=== PATIENT | female | born 1950 ===

== ENCOUNTER 2021-01-07 11:06 | Day surgery (SDC) | payer MEDICARE, BC ==
[~2021-01-07] VITALS: Ht 167.6 cm; Wt 107.3 kg
[2021-01-07 12:06] VITALS: BP 156/72; PULSE 72; TEMP 97.8
[2021-01-07] MEDS ORDERED: GLUCOSAMINE & C1 TAB PO (12:15)
[2021-01-07] MEDS ORDERED: CALCIUM 600/VIT1 CA1 PO (12:15)
[2021-01-07] MEDS ORDERED: CLARITIN 1010 MG/TAB PO (12:15)
[2021-01-07] MEDS ORDERED: ASPIRIN E.C. 8181 MG PO (12:16)
--- NOTE | 2021-01-07 12:16 | NUR ---
T0 RM 7 AT 1128- CALL LIGHT IN REAC WILL CALL SON FOR RIDE HOME
[2021-01-07] MEDS ORDERED: NORCO 325 MG-51 TAB PO ×4 (14:11→14:56)
[2021-01-07] MEDS ORDERED: FLOMAX 0.40.4 MG/CAP PO ×2 (14:11→14:21)
[2021-01-07 14:55] VITALS: BP 130/64; PULSE 63; TEMP 97.1
--- NOTE | 2021-01-07 14:55 | NUR ---
TO RM 7 PER CART FROM PACU. ALERT ORIENTED X3 AND TALKING TO STAFF. RECEIVED WATER AND TAKING SIPS. DENIES PAIN OR DISCOMFORT AT THIS TIME.
[2021-01-07 15:10] VITALS: BP 137/64; PULSE 63
--- NOTE | 2021-01-07 15:10 | NUR ---
RECEIVED APPLESAUCE AND WATER.
[2021-01-07 15:11] VITALS: BP 146/68; PULSE 64
--- NOTE | 2021-01-07 15:45 | NUR ---
AMBULATED TO BATHROOM WITH STANDBY ASSIST. VOIDED AND TOLERATED WELL. AMBULATED BACK TO ROOM AND ASK TO REST.
--- NOTE | 2021-01-07 16:15 | NUR ---
RECEIVED DISCHARGE INSTRUCTIONS AND VERBALIZED UNDERSTANDING. PATIENT STATED SHE IS FEELING BETTER AND NOT DIZZY. PATIENT CALLED SON FOR A RIDE.
--- NOTE | 2021-01-07 16:30 | NUR ---
DISCHARGED PER BY NURSING STAFF TO PRIVATE CARE IN [facility].
== END 2021-01-07 16:45 | disposition home or self-care (01) ==
LOC: SDCO 11:06
DX: N20.1 Calculus of ureter (principal); I10 Essential (primary) hypertension; Z79.899 Other long term (current) drug therapy; Z79.82 Long term (current) use of aspirin; Z90.710 Acquired absence of both cervix and uterus; Z20.822 Contact with and (suspected) exposure to COVID-19; Z90.89 Acquired absence of other organs; Z90.49 Acquired absence of other specified parts of digestive tract
CPT/HCPCS: C1769; C2617; J0690; J1100; J1885; J2405; J2704; J3010; J7120; Q9967